=== PATIENT | male | born 1975 ===

== ENCOUNTER 2017-11-19 20:43 | Emergency (ER) | payer OTHER ==
[2017-11-19] MEDS ORDERED: Sodium Chloride 0.9% 1,000 ML IV ONE (22:09)
--- NOTE | 2017-11-19 22:10 | C.PDOC ---
History Of Present Illness 42 y/o male presents to the ED complaining of waxing and waning left lower abdominal pain for the past few days, worsened today. Denies any fever, vomiting , or diarrhea. Pain is not affected by eating or drinking. No significant surgical history or prior history of diverticular disease or colitis. Patient takes protonix for GERD. Time Seen by Provider: 11/19/17 22:00 Chief Complaint (Nursing): Abdominal Pain History Per: Patient History/Exam Limitations: no limitations Onset/Duration Of Symptoms: Days Current Symptoms Are (Timing): Still Present Past Medical History Reviewed: Historical Data, Nursing Documentation, Vital Signs Vital Signs: Last Vital Signs Temp 99.4 F 11/20/17 00:34 Pulse 81 11/20/17 00:34 Resp 20 11/20/17 00:34 BP 111/69 11/20/17 00:34 Pulse Ox 100 11/20/17 00:34 - Medical History PMH: GERD Denies: Chronic Kidney Disease Surgical History: No Surg Hx Family History: States: No Known Family Hx - Social History Hx Tobacco Use: No Hx Alcohol Use: Yes Hx Substance Use: No - Immunization History Hx Tetanus Toxoid Vaccination: No Hx Influenza Vaccination: No Hx Pneumococcal Vaccination: No Review Of Systems Except As Marked, All Systems Reviewed And Found Negative. Constitutional: Negative for: Fever, Chills Gastrointestinal: Positive for: Abdominal Pain. Negative for: Vomiting, Diarrhea Physical Exam - Physical Exam Appears: Well (and in mild discomfort), No Acute Distress, Other (vital signs reviewed, all wnl) Skin: Warm, Dry Head: Atraumatic, Normacephalic Eye(s): bilateral: Normal Inspection, PERRL, EOMI Nose: Normal Oral Mucosa: Moist Neck: Normal ROM, Supple Chest: Symmetrical Cardiovascular: Rhythm Regular, No Murmur, Other (S1, S2 are wnl) Respiratory: Normal Breath Sounds, No Rales, No Rhonchi, No Wheezing Gastrointestinal/Abdominal: Soft, Tenderness (Exquisite left lower quadrant tenderness), No Mass, No Guarding, No Rebound, Other (No tenderness or masses ) Back: No CVA Tenderness, No Vertebral Tenderness, No Other (Flank tenderness) Extremity: Bilateral: Atraumatic, Normal Color And Temperature (with no clubbing , cyanosis, or edema) Pulses: Left Dorsalis Pedis: Normal, Right Dorsalis Pedis: Normal Neurological/Psych: Oriented x3, Normal Speech ED Course And Treatment - Laboratory Results Result Diagrams: 11/19/17 22:22 11/19/17 22:22 - CT Scan/US CT Abdomen/Pelvis Other Rad Studies (CT/US): Read By Radiologist, Radiology Report Reviewed CT/US Interpretation: FINDINGS: Lung bases: Unremarkable. No mass. No consolidation. ABDOMEN: Liver: Unremarkable. No mass. Gallbladder and bile ducts: Unremarkable. No calcified stones. No ductal dilation. Pancreas: Unremarkable. No mass. No ductal dilation. Spleen: Unremarkable. No splenomegaly. Adrenals: Unremarkable. No mass. Kidneys and ureters: Unremarkable. No solid mass. No hydronephrosis. Stomach and bowel: Unremarkable. No obstruction. No mucosal thickening. Appendix: No findings to suggest acute appendicitis. PELVIS: Bladder: Unremarkable. No mass. Reproductive: Unremarkable as visualized. ABDOMEN and PELVIS: Intraperitoneal space: Inflammatory stranding is present around the distal descending colon without. gross free air or organized or drainable fluid collection to suggest abscess. Bones/joints: No acute fracture. No dislocation. Soft tissues: Unremarkable. Vasculature: Unremarkable. No abdominal aortic aneurysm. Lymph nodes: Unremarkable. No enlarged lymph nodes. IMPRESSION: Acute uncomplicated distal descending colon diverticulitis. Followup colonoscopy is recommended. Thank you for allowing us to participate in the care of your patient. Dictated and Authenticated by: Tyson Olivarez MD. 11/19/2017 11:32 PM Eastern Time ([place] & [place]) Medical Decision Making Medical Decision Making: Impression: Diverticulitis Time: 22:09 Initial Plan: * Routine labs * IV fluids * Morphine 4 mg IV 22:44 Labs reviewed: 15k WBC Will order CT scan of abdomen/pelvis CT findings suggestive of diverticulitis, reviewed with patient. Patient will be discharged home with Cipro, Flagyl, Vicodin prescriptions. Disposition Counseled Patient/Family Regarding: Studies Performed, Diagnosis, Need For Followup, Rx Given - Disposition Referrals: [facility] [Outside] Disposition: HOME/ ROUTINE Disposition Time: 00:22 Condition: STABLE Prescriptions: Acetaminophen/Hydrocodone Bi [Vicodin 300 mg-5 mg] 1 tab PO QID PRN #12 tab PRN Reason: Pain, Mild (1-3) Ciprofloxacin HCl [Cipro] 500 mg PO BID #20 tablet Metronidazole [Flagyl] 500 mg PO TID #30 tablet Instructions: Diverticulitis Forms: [facility] (Occitan) Print Language: COOK ISLANDER - POA Present On Arrival: None - Clinical Impression Clinical Impression: Diverticulitis - Scribe Statement The provider has reviewed the documentation as recorded by the Scribe (Miriam Byrd) Provider Attestation: All medical record entries made by the Scribe were at my direction and personally dictated by me. I have reviewed the chart and agree that the record accurately reflects my personal performance of the history, physical exam, medical decision making, and the department course for this patient. I have also personally directed, reviewed, and agree with the discharge instructions and disposition.
[2017-11-19 22:25] LABS: BASO % 0.2 % (0.0-2.0); EOS % 0.3 % (0.0-4.0); HEMOGLOBIN 16.4 g/dL (12.0-18.0); LYMPH # 1.3 K/uL (1.0-4.3); LYMPH % 8.9 % (20.0-40.0); MEAN CELL VOLUME 89.8 fL (80.0-94.0); MEAN CORPUSCULAR HEMOGLOBIN 31.2 pg (27.0-31.0); MEAN CORPUSCULAR HGB CONC 34.7 g/dL (33.0-37.0); MEAN PLATELET VOLUME 9.1 fL (7.2-11.7); MONO # 1.2 K/uL (0.0-0.8); MONO % 8.2 % (0.0-10.0); NEUT # 12.3 K/uL (1.8-7.0); NEUT % 82.4 % (50.0-75.0); NRBC % 0.5 % (0.0-2.0); PLATELET COUNT 218 K/uL (130-400); RBC 5.25 Mil/uL (4.40-5.90); RED CELL DISTRIBUTION WIDTH 13.6 % (11.5-14.5)
[2017-11-19] MEDS ORDERED: Sodium Chloride 0.9% 1,000 ML ONE (22:26)
[2017-11-19] MEDS ORDERED: Morphine 4 MG/ML VIAL ONE (22:26)
[2017-11-19 22:44] LABS: ALB/GLOB RATIO 1.2 (1.0-2.1); ALBUMIN 4.6 g/dL (3.5-5.0); ALT/SGPT 69 U/L (21-72); AST/SGOT 43 U/L (17-59); BLOOD UREA NITROGEN 12 mg/dL (9-20); CALCIUM 8.8 mg/dl (8.6-10.4); GFR AFRICAN-AMERICAN > 60; GFR NON-AFRICAN AMERICAN > 60; LIPASE 35 U/L (23-300)
[2017-11-19 23:11] LABS: LYMPHOCYTE 8 % (20-40); MONOCYTE 5 % (0-10); NEUTROPHIL 86 % (50-75); PLATELET ESTIMATE NORMAL (NORMAL); REACTIVE LYMPHOCYTES 1 % (0-0); TOTAL CELLS COUNTED 100
[2017-11-19 23:12] LABS: ANISOCYTOSIS SLIGHT; OVALOCYTES SLIGHT; POIKILOCYTOSIS SLIGHT
[2017-11-19] MEDS ORDERED: Iohexol 300 100 ML IJ ONE (23:18)
[2017-11-19] MEDS ORDERED: Lidocaine 2% Jelly (Uro-Jet) ONE (23:42)
[2017-11-20 00:36] VITALS: BP 111/69; PULSE 81; RESP 20; TEMP 99.4; O2SAT 100
--- NOTE | 2017-11-20 07:36 | CT ---
PROCEDURE: CT Abdomen and Pelvis without intravenous contrast HISTORY: Left lower quadrant abdominal pain. Diverticulitis. COMPARISON: None. TECHNIQUE: Multiple contiguous axial images were performed through the abdomen and pelvis with the use of intravenous contrast. Subsequently, sagittal and coronal reformatted images were obtained. Radiation dose: Total exam DLP = 616 mGy-cm. This CT exam was performed using one or more of the following dose reduction techniques: Automated exposure control, adjustment of the mA and/or kV according to patient size, and/or use of iterative reconstruction technique. FINDINGS: LOWER THORAX: 2 millimeter pulmonary nodule within the right middle lobe anteriorly on series 3, image 8. Patchy bibasilar atelectasis. LIVER: Unremarkable. No gross lesion or ductal dilatation. GALLBLADDER AND BILE DUCTS: Unremarkable. PANCREAS: Unremarkable. No gross lesion or ductal dilatation. SPLEEN: Unremarkable. Splenule. ADRENALS: Unremarkable. No mass. KIDNEYS AND URETERS: Unremarkable. No hydronephrosis. No solid mass. Small hypodensity measuring 3 millimeters in the midpole of the right kidney, too small to adequately characterize. VASCULATURE: Unremarkable. No aortic aneurysm. BOWEL: Inflammatory stranding present around the distal descending colon without gross free air or organized or drainable fluid collection to suggest abscess. APPENDIX: No findings to suggest acute appendicitis. PERITONEUM: Unremarkable. No free fluid. No free air. LYMPH NODES: Unremarkable. No enlarged lymph nodes. BLADDER: Unremarkable. REPRODUCTIVE: Unremarkable. BONES: No acute fracture. OTHER FINDINGS: None. IMPRESSION: Acute uncomplicated distal descending colon diverticulitis. Follow-up colonoscopy recommended. 2 millimeter pulmonary nodule within the right lung as described. 6-12 month interval followup exam may be helpful if clinically indicated. These findings were preliminarily reported at 11:32 p.m. on 11/19/[address] Tyson Olivarez from [facility] [employer].
== END 2017-11-20 00:36 | disposition home or self-care (01) ==
LOC: C.ER 20:43
DX: K57.92 Diverticulitis of intestine, part unspecified, without perforation or abscess without bleeding (principal)
CPT/HCPCS: 74177; 80053; 83690; 85025; 96361; 96374; 99284; J2270; J7040; Q9967

== ENCOUNTER 2018-07-26 18:22 | Emergency (ER) | payer OTHER ==
[2018-07-26] MEDS ORDERED: Sodium Chloride 0.9% 1,000 ML IV ONE (19:06)
[2018-07-26] MEDS ORDERED: metroNIDAZOLE IV 500 mg/100 ml 500 MG/100 ML BAG IVPB STA (19:07)
[2018-07-26] MEDS ORDERED: Ciprofloxacin 400mg/200ml D5W 400 MG/200 ML BAG IV STA (19:07)
[2018-07-26 19:31] LABS: BASO # 0.1 K/uL (0.0-0.2); BASO % 0.6 % (0.0-2.0); EOS # 0.1 K/uL (0.0-0.7); EOS % 1.2 % (0.0-4.0); LYMPH # 2.1 K/uL (1.0-4.3); LYMPH % 22.7 % (20.0-40.0); MEAN CORPUSCULAR HEMOGLOBIN 31.7 pg (27.0-31.0); MEAN CORPUSCULAR HGB CONC 34.1 g/dL (33.0-37.0); MEAN PLATELET VOLUME 9.3 fL (7.2-11.7); MONO # 0.9 K/uL (0.0-0.8); MONO % 9.4 % (0.0-10.0); NEUT # 6.3 K/uL (1.8-7.0); NEUT % 66.1 % (50.0-75.0); NRBC % 0.1 % (0.0-2.0); RBC 5.04 Mil/uL (4.40-5.90); RED CELL DISTRIBUTION WIDTH 13.5 % (11.5-14.5); WHITE BLOOD COUNT 9.5 K/uL (4.8-10.8)
--- NOTE | 2018-07-26 19:33 | C.PDOC ---
History Of Present Illness 43 year old male presents to the ER with a complaint of LLQ pain since yesterday. Patient states the pain is not associated with nausea, vomiting, diarrhea, or dysuria. He has a PMHx of diverticulitis and notes the pain feels similar to that. Time Seen by Provider: 07/26/18 19:00 Chief Complaint (Nursing): Abdominal Pain History Per: Patient History/Exam Limitations: no limitations Onset/Duration Of Symptoms: Days (Yesterday) Current Symptoms Are (Timing): Still Present Location Of Pain/Discomfort: LLQ Radiation Of Pain To:: None Quality Of Discomfort: Unable To Describe Associated Symptoms: denies: Nausea, Vomiting, Diarrhea, Other (Dysuria) Exacerbating Factors: None Alleviating Factors: None Recent travel outside of the [place]: No Past Medical History Reviewed: Historical Data, Nursing Documentation, Vital Signs Vital Signs: Last Vital Signs Temp 98.7 F 07/26/18 18:24 Pulse 70 07/26/18 18:24 Resp 20 07/26/18 18:24 BP 128/80 07/26/18 18:24 Pulse Ox 99 07/26/18 18:24 - Medical History PMH: GERD Denies: Chronic Kidney Disease Family History: States: Unknown Family Hx - Social History Hx Tobacco Use: No Hx Alcohol Use: Yes Hx Substance Use: No - Immunization History Hx Tetanus Toxoid Vaccination: No Hx Influenza Vaccination: No Hx Pneumococcal Vaccination: No Review Of Systems Except As Marked, All Systems Reviewed And Found Negative. Gastrointestinal: Positive for: Abdominal Pain Physical Exam - Physical Exam Appears: Non-toxic, Other (In mild pain) Skin: Normal Color, Warm, Dry Head: Atraumatic, Normacephalic Eye(s): bilateral: Normal Inspection Oral Mucosa: Moist Chest: Symmetrical, No Tenderness Cardiovascular: Rhythm Regular Respiratory: Normal Breath Sounds, No Rales, No Rhonchi, No Wheezing Gastrointestinal/Abdominal: Soft, Tenderness (LLQ, negative Mcburney's), No Guarding, No Rebound Back: No CVA Tenderness Neurological/Psych: Oriented x3, Normal Speech ED Course And Treatment - Laboratory Results Result Diagrams: 07/26/18 19:28 07/26/18 19:28 O2 Sat by Pulse Oximetry: 99 (Room air) Pulse Ox Interpretation: Normal Progress Note: Blood work ordered. Morphine, IV cipro and flagyl administered. Disposition Counseled Patient/Family Regarding: Studies Performed, Diagnosis, Need For Followup, Rx Given - Disposition Referrals: Manan Bernstein MD [Medical Doctor] - Disposition: HOME/ ROUTINE Disposition Time: 20:40 Condition: STABLE Additional Instructions: FOLLOW UP WITH YOUR DOCTOR IN 1-2 DAYS USE MEDICATIONS DIRECTED RETURN TO EMERGENCY ROOM IF SYMPTOMS WORSEN SEGUIR CON PEDERSEN MDICO EN 1-2 MUNIZ UTILICE MEDICAMENTOS LARRY SE DIRIGE VUELVA A LA FAITH DE EMERGENCIA SI LOS SNTOMAS SE HACEN PEOR Prescriptions: Ciprofloxacin [Cipro] 1 tab PO BID #14 tab Hydrocodone/Acetaminophen [Hydrocodone-Acetamin 5-325 mg] 1 each PO Q6 PRN #12 tablet PRN Reason: PAIN metroNIDAZOLE [Flagyl] 500 mg PO TID #21 tab Instructions: Diverticulitis (DC) Forms: [employer] (Mohawk) Print Language: ALBANIAN - Clinical Impression Clinical Impression: Diverticulitis - Scribe Statement The provider has reviewed the documentation as recorded by the Scribreuben Teague All medical record entries made by the Scribe were at my direction and personally dictated by me. I have reviewed the chart and agree that the record accurately reflects my personal performance of the history, physical exam, medical decision making, and the department course for this patient. I have also personally directed, reviewed, and agree with the discharge instructions and disposition.
[2018-07-26] MEDS ORDERED: Morphine 4 MG/ML VIAL ONE (19:43)
[2018-07-26] MEDS ORDERED: metroNIDAZOLE IV 500 mg/100 ml 500 MG/100 ML BAG ONE (19:43)
[2018-07-26] MEDS ORDERED: Ciprofloxacin 400mg/200ml D5W 400 MG/200 ML BAG IVPB ONE (19:43)
[2018-07-26] MEDS ORDERED: Sodium Chloride 0.9% 1,000 ML ONE (19:43)
[2018-07-26 19:46] LABS: ALB/GLOB RATIO 1.5 (1.0-2.1); ALBUMIN 4.7 g/dL (3.5-5.0); ALT/SGPT 87 U/L (21-72); AST/SGOT 53 U/L (17-59); BLOOD UREA NITROGEN 19 mg/dL (9-20); CALCIUM 8.7 mg/dl (8.6-10.4); GFR NON-AFRICAN AMERICAN > 60; LIPASE 56 U/L (23-300)
[2018-07-26 19:52] LABS: SQUAMOUS EPITHIAL 1 /hpf (0-5); URINE BILIRUBIN NEGATIVE (NEGATIVE); URINE BLOOD NEGATIVE (NEGATIVE); URINE CLARITY Clear (Clear); URINE COLOR Yellow (YELLOW); URINE GLUCOSE (UA) NORMAL (Normal); URINE LEUKOCYTE ESTERASE NEG Leu/uL (Negative); URINE PROTEIN NEGATIVE (NEGATIVE)
[2018-07-26 21:06] VITALS: BP 121/81; PULSE 69; RESP 16; TEMP 98.8; O2SAT 97
== END 2018-07-26 21:06 | disposition home or self-care (01) ==
LOC: C.ER 18:22
DX: K57.92 Diverticulitis of intestine, part unspecified, without perforation or abscess without bleeding (principal)
CPT/HCPCS: 80053; 81001; 83690; 85025; 87040; 96365; 96375; 99285; J0744; J2270; J7030

== ENCOUNTER 2018-08-21 15:54 | Emergency (ER) | payer OTHER ==
[2018-08-21 16:08] VITALS: RESP 16; TEMP 97.7; O2SAT 98
[2018-08-21] MEDS ORDERED: Tdap Vaccine 0.5 ml Vial (10-64 yrs) IM ONE ×2 (16:08→16:28)
--- NOTE | 2018-08-21 16:09 | C.PDOC ---
History Of Present Illness 43 y/o male with no significant PMH presents to the ED c/o right 3rd digit laceration s/p injury this afternoon. Pt was at work when he cut his right hand 3rd digit on glass, causing a horizontal laceration through the nail. Has not taken any medication for pain. Unknown last tetanus. Denies numbness, weakness, paresthesias, lacerations elsewhere, or any other associated complaints. <Irene Salazar - Last Filed: 08/22/18 02:47> <Irene Salazar - Last Filed: 08/22/18 02:47> <Emery Dent - Last Filed: 08/22/18 06:15> Time Seen by Provider: 08/21/18 16:05 Chief Complaint (Nursing): Abnormal Skin Integrity Past Medical History Vital Signs: Last Vital Signs Temp 97.7 F 08/21/18 15:59 Pulse 84 08/21/18 15:59 Resp 16 08/21/18 15:59 BP 143/92 H 08/21/18 15:59 Pulse Ox 98 08/21/18 15:59 - Medical History PMH: GERD Denies: Chronic Kidney Disease Family History: States: Unknown Family Hx - Social History Hx Tobacco Use: No Hx Alcohol Use: Yes Hx Substance Use: No - Immunization History Hx Tetanus Toxoid Vaccination: Yes Hx Influenza Vaccination: No Hx Pneumococcal Vaccination: No <Irene Salazar - Last Filed: 08/22/18 02:47> Vital Signs: Last Vital Signs Temp 97.7 F 08/21/18 15:59 Pulse 84 08/21/18 15:59 Resp 16 08/21/18 15:59 BP 143/92 H 08/21/18 15:59 Pulse Ox 98 08/21/18 18:06 <Emery Dent - Last Filed: 08/22/18 06:15> ED Course And Treatment O2 Sat by Pulse Oximetry: 98 - Other Rad right hand XR X-Ray: Viewed By Me, Read By Radiologist Interpretation: Date of service: 08/21/2018. PROCEDURE: Right middle finger radiographs. HISTORY: laceration over nail, r/o fracture or FB. COMPARISON: None. TECHNIQUE: AP radiograph of the right hand, as well as spot oblique and lateral images of right middle finger were obtained. FINDINGS: RIGHT MIDDLE FINGER: Right middle finger normal, without fracture of focal lesion. Remainder of the right hand (as seen on the AP view) grossly unremarkable. JOINTS: Normal. SOFT TISSUES: Normal. OTHER FINDINGS: None. IMPRESSION: Normal right middle finger radiographs. <Irene Salazar Last Filed: 08/22/18 02:47> Laceration - Laceration Repair right 3rd digit Wound Length (In cm): 1 Description Of Wound: Linear Wound Cleansed With: Sterile Saline Anesthesia: Lidocaine 1% Wound Examination: Irrigated With Saline, No FB With Wound Exploration Wound Closure: Suture (three ) Suture Technique And Material Used: Interrupted, Nylon (3-0) Wound Complexity: Intermediate <Emery Dent - Filed: 08/22/18 06:15> Medical Decision Making Medical Decision Making: Diagnostic testing results and plan of care discussed with patient. Strict instructions given regarding prescription use, importance of followup, and signs/symptoms to return to ER including numbness, paresthesias, lacerations elsewhere, or any other new/worsening symptoms. Pt verbalized understanding of discussion. Patient is A&Ox3, ambluating with steady gait, with vital signs stable for discharge. <Irene Salazar Last Filed: 08/22/18 02:47> Medical Decision Makincm linear laceration across nail of right 3rd digit. Local anesthesia achieved with 1% lidocaine without epinephrine. Wound irrigated with normal saline and explored. No foreign body visualized. Three 3-0 interrupted Nylon sutures placed. Bleeding was controlled. Patient tolerated well. <Emery Dent Last Filed: 08/22/18 06:15> Disposition Discussed With : Freda Boogie Comment: Recommends nailbed repair with dermabond after nail removal, antibiotics, and followup in office. Doctor Will See Patient In The: Office - Disposition Disposition Time: 20:00 <Irene Salazar - Last Filed: 08/22/18 02:47> <Emery Dent - Filed: 08/22/18 06:15> - Disposition Referrals: Freda Boogie MD [Staff Provider] - Disposition: HOME/ ROUTINE Condition: IMPROVED Additional Instructions: DEVOLUCIN EN SCALES PARA LA EXTRACCIN DE SUTURA EN 7-10 SCALES Keflex cada 6 horas franki 7 scales Mantenga la herida limpia, seca y cubierta. No quitar el apsito franki 2 scales. Despus de 2 scales, limpie diariamente con jabn / agua y vuelva a aplicar el aderezo diariamente con bacitracina Seguimiento con mano doctor Dr. Boogie dentro de 2 scales Seguimiento con clnica / mdico primario en 2 scales. Regrese a la nancy de emergencias con cualquier sntoma nuevo o que empeore Prescriptions: RX: Bacitracin OINT 1 applic TP DAILY #1 tube Cephalexin [Keflex] 500 mg PO QID 7 Days #28 capsule Instructions: Wound Care (DC) Forms: Gen Discharge Inst Hungarian, [facility] (Hungarian), Work Excuse - Clinical Impression Clinical Impression: Laceration
--- NOTE | 2018-08-21 16:45 | RAD ---
Date of service: 08/21/2018 PROCEDURE: Right middle finger radiographs. HISTORY: laceration over nail, r/o fracture or FB COMPARISON: None. TECHNIQUE: AP radiograph of the right hand, as well as spot oblique and lateral images of right middle finger were obtained. FINDINGS: RIGHT MIDDLE FINGER: Right middle finger normal, without fracture of focal lesion. Remainder of the right hand (as seen on the AP view) grossly unremarkable. JOINTS: Normal. SOFT TISSUES: Normal. OTHER FINDINGS: None. IMPRESSION: Normal right middle finger radiographs.
[2018-08-21] MEDS ORDERED: Lidocaine 1% Inj (20ml) INFIL ONE (18:13)
[2018-08-21] MEDS ORDERED: Lidocaine Hydrochloride 5 ML INJ ONE ×2 (18:17→18:21)
[2018-08-21] MEDS ORDERED: Absorbable Gelatin Sponge Size 12-7 ONE (19:06)
[2018-08-21] MEDS ORDERED: Bacitracin 500 Units/gm Oint Foilpak UD ONE (20:30)
[2018-08-21 20:53] VITALS: BP 136/85; PULSE 82
== END 2018-08-21 20:52 | disposition home or self-care (01) ==
LOC: C.ER 15:54
DX: S61.212A Laceration without foreign body of right middle finger without damage to nail, initial encounter (principal); W25.XXXA Contact with sharp glass, initial encounter; Y99.0 Civilian activity done for income or pay; Z23 Encounter for immunization

== ENCOUNTER 2018-08-28 09:31 | Emergency (ER) | payer OTHER ==
[2018-08-28 09:34] VITALS: BMI 27.2
[2018-08-28 09:36] VITALS: BP 138/90; PULSE 79; RESP 18; TEMP 97.9; O2SAT 100
[2018-08-28] MEDS ORDERED: Bacitracin 500 Units/gm Oint Foilpak UD TOP ONE (10:20)
[2018-08-28] MEDS ORDERED: Bacitracin 500 Units/gm Oint Foilpak UD ONE (10:31)
--- NOTE | 2018-08-28 10:39 | C.PDOC ---
History Of Present Illness Pt is here for suture removal Time Seen by Provider: 08/28/18 10:15 Chief Complaint (Nursing): Suture/Staple Removal History Per: Patient Onset/Duration Of Symptoms: Days Ago (1 week) Current Symptoms Are (Timing): Still Present Location Of Injury: Right: Hand (middle finger) Severity: Moderate Additional History Per: Prior Records Past Medical History Reviewed: Historical Data, Nursing Documentation, Vital Signs Vital Signs: Last Vital Signs Temp 97.9 F 08/28/18 09:35 Pulse 79 08/28/18 09:35 Resp 18 08/28/18 09:35 BP 138/90 08/28/18 09:35 Pulse Ox 100 08/28/18 09:35 - Medical History PMH: GERD Denies: Chronic Kidney Disease Family History: States: Unknown Family Hx - Social History Hx Tobacco Use: No Hx Alcohol Use: Yes Hx Substance Use: No - Immunization History Hx Tetanus Toxoid Vaccination: Yes Hx Influenza Vaccination: No Hx Pneumococcal Vaccination: No Review Of Systems Except As Marked, All Systems Reviewed And Found Negative. Constitutional: Negative for: Fever Musculoskeletal: Negative for: Hand Pain Neurological: Negative for: Weakness, Numbness Physical Exam - Physical Exam Appears: Non-toxic, No Acute Distress Skin: Warm, Dry Neck: Normal ROM Extremity: Normal ROM, Other (Nailbed injury of right middle finger closed with 3 sutures. No discharge.) Pulses: Left Radial: Normal Neurological/Psych: Normal Motor, Normal Sensation ED Course And Treatment O2 Sat by Pulse Oximetry: 100 Pulse Ox Interpretation: Normal Progress Note: Sutures removed without complication. Disposition Counseled Patient/Family Regarding: Diagnosis, Need For Followup - Disposition Referrals: Kevan Mercer MD [Staff Provider] - Disposition: HOME/ ROUTINE Disposition Time: 10:39 Condition: STABLE Additional Instructions: Follow up with a Hand specialist within 1 week for further evaluation and t reatment. Return to the ER if you develop fever, worsening of symptoms or if you have any other concerns. Forms: [employer] (Slovak) Print Language: MALAYSIAN - Clinical Impression Clinical Impression: Removal of suture
== END 2018-08-28 10:42 | disposition home or self-care (01) ==
LOC: C.ER 09:31
DX: Z48.02 Encounter for removal of sutures (principal)